=== PATIENT | male | born 1990 | race Caucasian/White ===

== ENCOUNTER 2018-03-18 15:30 | Emergency (ER) | payer MEDICAID ==
[~2018-03-18] VITALS: Ht 182.9 cm; Wt 102.3 kg
[2018-03-18 15:33] VITALS: BP 126/75
[2018-03-18] MEDS ORDERED: POLOS EACHEYE (15:52)
== END 2018-03-18 16:06 | disposition home or self-care (01) ==
LOC: ER 15:31
DX: H10.89 Other conjunctivitis (principal); Z79.2 Long term (current) use of antibiotics
CPT/HCPCS: 99283

== ENCOUNTER 2018-11-15 18:40 | Emergency (ER) | payer MEDICAID ==
[~2018-11-15] VITALS: Ht 182.9 cm; Wt 96.2 kg
[~2018-11-15 18:40] MED LIST: TOBR5DRO2 RIGHTEYE
[2018-11-15 18:48] VITALS: BP 132/87
[2018-11-15] MEDS ORDERED: ALBU8HFA PO (20:11)
[2018-11-15] MEDS ORDERED: AMOX-580 PO (20:11)
[2018-11-15] MEDS ORDERED: GENT5DRO4 EACHEYE (20:11)
== END 2018-11-15 20:27 | disposition home or self-care (01) ==
LOC: ER 18:41
DX: H10.89 Other conjunctivitis (principal); B99.9 Unspecified infectious disease; J40 Bronchitis, not specified as acute or chronic; F17.200 Nicotine dependence, unspecified, uncomplicated; Z79.899 Other long term (current) drug therapy
CPT/HCPCS: 99283

== ENCOUNTER 2021-09-17 19:31 | Emergency (ER) | payer SELFPAY ==
[~2021-09-17] VITALS: Ht 182.9 cm; Wt 90.9 kg
[~2021-09-17 19:31] MED LIST changes: +GENT5DRO4 EACHEYE
[2021-09-17 19:34] VITALS: BP 135/87
--- NOTE | 2021-09-17 20:51 | NUR ---
PATIENT LYING IN GURNEY EYES CLOSED RR EVEN UN LABORED NO OBSERVABLE S/S OF ACUTE RESPIRATORY DISTRESS AT THIS TIME WILL CONTINUE TO MONITOR
[2021-09-17] MEDS ORDERED: AZIT-83 PO (21:48)
[2021-09-17] MEDS ORDERED: dexamethasone sod phosphate 10mg/ml inj PO STA (21:52)
--- NOTE | 2021-09-17 22:09 | NUR ---
PATIENT IN [facility] EYES CLOSED COVERS ON RR EVEN UN LABOREDD NO OBSERVABLE S/S OF ACUTE STRESS AT THIS TIME WILL CONTINUE TO MONITOR
[2021-09-17 22:10] LABS: BASOPHILS % (AUTO) 0.3 % (0-1); EOSINOPHILS # (AUTO) 0.5 X10'3 (0-0.9); EOSINOPHILS % (AUTO) 4.5 % (0-6); HEMATOCRIT 46.3 % (42.0-52.0); HEMOGLOBIN 15.4 g/dl (14.0-17.9); LYMPHOCYTES # (AUTO) 1.2 X10'3 (1.1-4.8); LYMPHOCYTES % (AUTO) 10.5 % (21-51); MEAN CORPUSCULAR HGB CONC 33.2 g/dL (33.0-36.5); MEAN CORPUSCULAR VOLUME 87.3 FL (78-98); MEAN PLATELET VOLUME 7.8 FL (7.4-10.4); MONOCYTES % (AUTO) 8.8 % (2-12); NEUTROPHILS # (AUTO) 8.7 X10'3 (1.8-7.7); NEUTROPHILS % (AUTO) 75.9 % (42-75); PLATELET COUNT 225 X10'3 (140-440); RED CELL DISTRIBUTION WIDTH 13.1 % (11.5-14.5); WHITE BLOOD COUNT 11.5 X10'3 (4.5-11.0)
[2021-09-17 22:33] LABS: ALANINE AMINOTRANSFERASE 53 U/L (12-78); ALBUMIN 2.8 G/DL (3.4-5.0); ALBUMIN/GLOBULIN RATIO 0.9 (1.1-1.5); ALKALINE PHOSPHATASE 98 IU/L (46-116); ANION GAP 10 (8-16); ASPARTATE AMINO TRANSFERASE 31 U/L (10-37); BILIRUBIN,TOTAL 0.3 MG/DL (0.1-1.0); BLOOD UREA NITROGEN 9 MG/DL (7-18); BUN/CREATININE RATIO 8.7 (5.4-32.0); CALCIUM 8.5 MG/DL (8.5-10.1); CHLORIDE 107 MMOL/L (99-107); CREATININE 1.03 MG/DL (0.60-1.10); GLUCOSE 90 MG/DL (70-104); POTASSIUM 4.2 MMOL/L (3.5-5.1); SODIUM 142 MMOL/L (135-145); eGFR 85 ML/MIN
[2021-09-17] MEDS ORDERED: amox tr/potassium clavulanate 875/125mg TAB PO ONE (22:55)
[2021-09-17] MEDS ORDERED: AMOX-117 PO (23:04)
== END 2021-09-17 23:04 | disposition home or self-care (01) ==
LOC: ER 19:32
DX: J18.9 Pneumonia, unspecified organism (principal); Z20.822 Contact with and (suspected) exposure to COVID-19; R06.02 Shortness of breath; R05.9 Cough, unspecified; F15.90 Other stimulant use, unspecified, uncomplicated; F19.90 Other psychoactive substance use, unspecified, uncomplicated; Z79.2 Long term (current) use of antibiotics; Z79.899 Other long term (current) drug therapy
CPT/HCPCS: 36415; 71045; 80053; 84145; 85025; 87635; 99284; C9803; J1100

== ENCOUNTER 2021-10-08 16:11 | Emergency (ER) | payer SELFPAY ==
[~2021-10-08] VITALS: Ht 182.9 cm; Wt 98.0 kg
[2021-10-08 16:11] VITALS: BP 125/82
[~2021-10-08 16:11] MED LIST changes: +AZIT-83 PO
--- NOTE | 2021-10-08 16:37 | NUR ---
Pt discharged to the custody of [facility] officer Elías Martinez. Pt is fit for custody.
== END 2021-10-08 16:37 ==
LOC: ER 16:12
DX: Z04.1 Encounter for examination and observation following transport accident (principal); F17.200 Nicotine dependence, unspecified, uncomplicated; F15.90 Other stimulant use, unspecified, uncomplicated; F19.90 Other psychoactive substance use, unspecified, uncomplicated; Z79.2 Long term (current) use of antibiotics; Z79.899 Other long term (current) drug therapy; V89.2XXA Person injured in unspecified motor-vehicle accident, traffic, initial encounter; Y93.89 Activity, other specified; Y92.89 Other specified places as the place of occurrence of the external cause; Y99.8 Other external cause status
CPT/HCPCS: 99283

== ENCOUNTER 2022-03-11 13:01 | Emergency (ER) | payer MEDICAID ==
[~2022-03-11] VITALS: Ht 182.9 cm; Wt 95.5 kg
[~2022-03-11 13:01] MED LIST changes: -AZIT-83 PO
[2022-03-11 13:17] VITALS: BP 123/91
[2022-03-11] MEDS ORDERED: LIDOcaine 1% W/epiNEPHrine 1:100,000 20ml vial IJ ONE (14:35)
[2022-03-11] MEDS ORDERED: CEPH-585 PO (14:39)
== END 2022-03-11 14:49 | disposition home or self-care (01) ==
LOC: ER 13:01
DX: L03.317 Cellulitis of buttock (principal); L73.1 Pseudofolliculitis barbae; F15.90 Other stimulant use, unspecified, uncomplicated; Z79.899 Other long term (current) drug therapy
CPT/HCPCS: 99283

== ENCOUNTER 2022-03-26 05:52 | Emergency (ER) | payer MEDICAID ==
[~2022-03-26] VITALS: Ht 182.9 cm; Wt 95.0 kg
[~2022-03-26 05:52] MED LIST changes: +CEPH-585 PO
[2022-03-26 06:07] VITALS: BP 126/80
--- NOTE | 2022-03-26 06:20 | NUR ---
DIGNA ESPINOZA. REPORT FILED. CASE NUMBER IS [id number].
== END 2022-03-26 07:15 | disposition left against medical advice (07) ==
LOC: ER 05:53
DX: M79.601 Pain in right arm (principal); Z53.21 Procedure and treatment not carried out due to patient leaving prior to being seen by health care provider

== ENCOUNTER 2025-01-19 21:25 | Emergency (ER) | payer MEDICAID ==
[~2025-01-19] VITALS: Ht 182.9 cm; Wt 104.5 kg
[~2025-01-19 21:25] MED LIST changes: -CEPH-585 PO; +GEN0.3OS EACHEYE; -GENT5DRO4 EACHEYE
[2025-01-19 21:27] VITALS: BP 140/82; PULSE 98; RESP 18; O2SAT 99
--- NOTE | 2025-01-19 22:00 | Physician Documentation ---
HPI ~ General Chief Complaint: Tooth Problem Stated Complaint: TOOTH PAIN Time Seen by MD: 21:54 Primary Medical Doctor: None History of Present Illness HPI Comment Patient is seen today with complaints of pain of molar in the left side. Patient states this started few days ago he and he does have history of dental abscesses and dental caries. Patient denies any fever or chills. He states he needs some amoxicillin and ibuprofen. He has no other concern or complaint at this time. Medication Reconciliation Allergies: Coded Allergies: No Known Allergies (Unverified , 01/19/25) Scheduled Gentamicin Sulfate (Gentak), 2 DROP EACHEYE TID Tobramycin Sulfate/Dexameth (Tobradex Eye Drops), 1 DROP RIGHTEYE Q6H Past Medical History Past Medical History: No Pertinent History Past Surgical History: no surgical history Alcohol Use: Rarely Drug Use: methamphetamine, other Lives with: Family Lives In: Home Review of Systems Constitutional: Denies: chills, fever, weakness Eyes: Denies: pain, blurred vision ENT: Denies: ear pain, nose pain, throat pain, mouth pain Respiratory: Denies: cough, shortness of breath Cardiovascular: Denies: chest pain, palpitations Gastrointestinal: Denies: abdominal pain, nausea, vomiting Genitourinary: Denies: burning, dysuria Male Genitalia: Denies: penile discharge, testicular pain Neurological: Denies: headache, dizziness Musculoskeletal: Denies: pain, swelling Integumentary: Denies: rash, lesions Allergic/Immunologic: Denies: hives, itching Hematologic/Lymphatic: Denies: no symptoms reported Psychiatric: Denies: depression, anxiety Physical Exam Vital Signs: Temperature: 98.1, Source: Oral, Heart Rate: 98, Respiratory Rate: 18, BP: 140/82, Pulse Oximetry: 99, Weight: 104.550 Physical Exam General: Awake and Alert, no acute distress. HEENT: Patient on exam has very poor dentition with multiple dental caries and fractures and periapical abscess of left upper molar. Conjunctiva pink, Sclera clear, Mucus Membranes moist. Neck: Supple without masses and tenderness. Resp: Unlabored. Lungs clear to auscultation bilaterally. Heart: Regular Rate and rhythm, normal S1 and S2 without murmur, rub or gallop. Abdomen: Soft and non tender no organomegaly Extremities: No cyanosis,clubbing or edema. Skin: Warm and Dry. Progress Results/Orders Results/Orders Vital Signs 01/19/25 21:27 Temp 98.1 Pulse 98 Resp 18 B/P (MAP) 140/82 Pulse Ox 99 Medical Decision Making Findings Patient is seen today with complaints of pain of molar in the left side. Patient states this started few days ago he and he does have history of dental abscesses and dental caries. Patient denies any fever or chills. He states he needs some amoxicillin and ibuprofen. He has no other concern or complaint at this time. Patient was given dose of the amoxicillin a 1000 mg by mouth in the ED tonight along with ibuprofen 800 mg and Tylenol 975 mg by mouth. Patient will have the same medications sent to his pharmacy to be taken as prescribed. Patient will follow up with dentist as soon as possible. Return to ED with any worsening, concerning or changing symptoms. Departure Disposition: 01 HOME / SELF CARE / HOMELESS Impression: Primary Impression: Dental abscess Condition: Improved Discharge Instructions: Dental Abscess Additional Instructions: Patient was given dose of the amoxicillin a 1000 mg by mouth in the ED tonight along with ibuprofen 800 mg and Tylenol 975 mg by mouth. Patient will have the same medications sent to his pharmacy to be taken as prescribed. Patient will follow up with dentist as soon as possible. Return to ED with any worsening, concerning or changing symptoms. Referrals: NO PRIMARY CARE PROVIDER (PCP) Prescriptions Acetaminophen (Tylenol Extra Strength) 500 Mg Tablet 2 TAB PO Q6H PRN PRN for pain or fever for 7 Days, #56 TAB Prov: MARY COLIN 01/19/25 Ibuprofen (Ibuprofen) 800 Mg Tablet 1 TAB PO Q8H for pain for 10 Days, #30 TAB 0 Refills Prov: MARY COLIN 01/19/25 Amoxicillin Trihydrate (Amoxicillin) 875 Mg Tablet 1 TAB PO Q12H for 10 Days, #20 TAB Prov: MARY COLIN 01/19/25 Signature Scribe Signature: No scribe Attestation: No scribe MARY COLIN Jan 19, 2025 22:00
[2025-01-19] MEDS ORDERED: AMOX875T10 PO (22:10)
[2025-01-19] MEDS ORDERED: ACET-1025 PO (22:10)
[2025-01-19] MEDS ORDERED: IBUP-1986 PO (22:10)
[2025-01-19 22:50] VITALS: TEMP 98.1
[2025-01-19] MEDS: ibuprofen tablet 400 MG TABLET PO ONE (22:55)
[2025-01-19] MEDS: amoxicillin 250mg capsule PO STA (22:55)
== END 2025-01-19 22:56 | disposition home or self-care (01) ==
LOC: ER 21:25
DX: K04.7 Periapical abscess without sinus (principal); Z79.899 Other long term (current) drug therapy
CPT/HCPCS: 99283

== ENCOUNTER 2025-02-11 20:12 | Emergency (ER) | payer MEDICAID ==
[~2025-02-11] VITALS: Ht 182.9 cm; Wt 98.9 kg
[~2025-02-11 20:12] MED LIST changes: +IBUP-1986 PO
[2025-02-11] MEDS ORDERED: NAPR-56 PO (20:22)
[2025-02-11] MEDS ORDERED: SULF1TAB49 PO (20:22)
--- NOTE | 2025-02-11 20:24 | Physician Documentation ---
History of Present Illness ~ Chief Complaint: Abscess Stated Complaint: ARMPIT BUMPS Time Seen by MD: 20:13 Primary Medical Doctor: None HPI Presents to the ER for draining painful abscesses beneath left arm. No fevers, chills, nausea, vomiting. Reportedly UTD on tetanus. Tetanus Within 5 Years: Yes Medication Reconciliation Allergies: Coded Allergies: No Known Allergies (Unverified , 02/11/25) Scheduled Gentamicin Sulfate (Gentak), 2 DROP EACHEYE TID Ibuprofen (Ibuprofen), 1 TAB PO Q8H Naproxen (Naproxen), 1 TAB PO Q12H Sulfamethoxazole/Trimethoprim (Bactrim Ds Tablet), 1 TAB PO Q12H Tobramycin Sulfate/Dexameth (Tobradex Eye Drops), 1 DROP RIGHTEYE Q6H Past Medical History Past Medical History: No Pertinent History Past Surgical History: no surgical history Alcohol Use: Rarely Drug Use: methamphetamine, other Lives with: Family Lives In: Home Physical Exam Vital Signs: Temperature: 97.7, Source: Oral, Heart Rate: 108, Respiratory Rate: 17, BP: 138/97, Pulse Oximetry: 97, Weight: 98.860 Oxygen Flow Rate: 0 Physical Exam General: Alert, no apparent distress. Neck: Full range of motion. Respiratory: Lungs clear, no respiratory distress. Chest: No accessory muscle use. Cardiovascular: Regular rate and rhythm, no murmurs. Gastrointestinal: Soft, nontender, nondistended. Bowels sounds present. Extremities: Normal range of motion, no deformity. Neurologic: Oriented x4. Psychiatric: Normal mood and affect. Skin: Normal color, warm and dry. No edema, no ecchymosis.Several small draining abscesses beneath left undearm. Progress Results/Orders Results/Orders Orders - MELINDA GARZA NP Sulfamethox/Trimetho. Ds Tab (Septra Ds (02/11/25 20:25) Vital Signs 02/11/25 20:14 Temp 97.7 Pulse 108 Resp 17 B/P (MAP) 138/97 Pulse Ox 97 O2 Flow Rate 0 Medical Decision Making Differential Dx:Considerations: Include: Abscess, Bacteremia, Cellulitis, Erysi pelas, Felon, Gas gangrene, Hidrademitis suppurativa, Impetigo, Lymphangitis, Osteromyelitis, Paronychia, Septicemia Additional Comment Well appearing 34 yr old male presents due to multiple draining abscesses beneath left underarm. Reports being UTD on tetanus. Tx with first dose of antibiotic in ER and then full course to his outpatient pharmacy. Is to return if worse. Departure Time of Disposition: 20:22 Disposition: HOME / SELF CARE / HOMELESS Impression: Primary Impression: Abscess Additional Impression: Hidradenitis axillaris Condition: Stable Discharge Instructions: Hidradenitis Suppurativa, Skin Abscess, [id number] Additional Instructions: Warm moist compresses to left underarm x 15 minutes at least four times daily. Keep wounds clean and dry. Change the gauze after each time you apply the warm moist soaks. Take the antibiotics as prescribed. Followup with primary care in the next week or return if worse. Referrals: NO PRIMARY CARE PROVIDER (PCP) Prescriptions Naproxen (Naproxen) 500 Mg Tablet 1 TAB PO Q12H, #20 TAB Prov: MELINDA GARZA NP 02/11/25 Sulfamethoxazole/Trimethoprim (Bactrim Ds Tablet) 800 Mg-160 Mg Tablet 1 TAB PO Q12H for 7 Days, #14 TAB Prov: MELINDA GARZA NP 02/11/25 Education Educated: Patient Educated regarding: diagnosis, treatment, prognosis, need for follow up Signature Scribe Signature: x Attestation: The note accurately reflects work and decisions made by me.Melinda Pennington NP 02/11/25 20:27 MELINDA GARZA NP Feb 11, 2025 20:24
[2025-02-11] MEDS: sulfamethoxazole/trimethoprim DS (800/160mg) tablet PO ONE (20:31)
[2025-02-11 20:33] VITALS: BP 136/98; PULSE 101; RESP 18; TEMP 98.6; O2SAT 99
== END 2025-02-11 20:34 | disposition home or self-care (01) ==
LOC: ER 20:12
DX: L02.414 Cutaneous abscess of left upper limb (principal); L73.2 Hidradenitis suppurativa
CPT/HCPCS: 99283

== ENCOUNTER 2025-05-23 21:09 | Emergency (ER) | payer MEDICAID ==
[~2025-05-23] VITALS: Ht 182.9 cm; Wt 100.0 kg
[2025-05-23 21:18] VITALS: BP 128/90; PULSE 108; RESP 16; O2SAT 99
--- NOTE | 2025-05-23 21:46 | Physician Documentation ---
HPI ~ General Chief Complaint: Facial Swelling Stated Complaint: TOOTH PAIN Time Seen by MD: 21:37 Primary Medical Doctor: None History of Present Illness HPI Comment Presents for interval evaluation: Facial cellulitis secondary to dental infection currently on antibiotics twice a day. He has been taking antibiotics for 24-48 hours. Examination consistent with present diagnosis. Medication Reconciliation Allergies: Coded Allergies: No Known Allergies (Unverified , 05/23/25) Scheduled Gentamicin Sulfate (Gentak), 2 DROP EACHEYE TID Ibuprofen (Ibuprofen), 1 TAB PO Q8H Tobramycin Sulfate/Dexameth (Tobradex Eye Drops), 1 DROP RIGHTEYE Q6H Past Medical History Past Medical History: No Pertinent History Past Surgical History: no surgical history Alcohol Use: Rarely Drug Use: methamphetamine, other Lives with: Family Lives In: Home Review of Systems All Other Systems at this time: Reviewed and Negative ENT: Reports: other (facial swelling) ENT dental pain Physical Exam Vital Signs: Temperature: 98.1, Source: Oral, Heart Rate: 108, Respiratory Rate: 16, BP: 128/90, Pulse Oximetry: 99, Weight: 100.000 General Appearance: alert, WD/WN, mild distress Ear: auricle normal Teeth/Gums: carious, gingiva redness, gingiva swelling; No: missing teeth, necrotizing gingiva, gingiva pointing Face: swelling (left with mild inferior wendy orbital swelling without erythema) Neck: non-tender Respiratory: no respiratory distress Chest: no accessory muscle use Cardiovascular: regular rate, rhythm Neurologic: oriented x4 Progress Results/Orders Results/Orders Vital Signs 05/23/25 05/23/25 21:18 21:52 Temp 98.1 98.1 Pulse 108 Resp 16 B/P (MAP) 128/90 Pulse Ox 99 Medical Decision Making Additional information obtaine: old records Findings 34-year-old male who is examination history is consistent with facial cellulitis secondary to odontogenic infection for which he has been treated adequately for. Patient encouraged to continue with the medications as directed. No clinical suspicion for periapical abscess, Wilmer's angina and/or angioedema. He is scheduled dental follow up in the near future. Safely discharged in the emergency department. Differential Dx:Considerations: Include: Facial Cellulitis, Periapical abscess, Peridontal abscess, Pulpitis, Tooth avulsion Departure Disposition: HOME / SELF CARE / HOMELESS Impression: Primary Impression: Facial cellulitis Additional Impression: Dental abscess Condition: Stable Discharge Instructions: Cellulitis, Adult, Dental Abscess, [id number] Additional Instructions: Please continue with the current antibiotics as directed. Please keep your scheduled follow up appointment with the dentist. Return to the emergency department symptoms worsen. Your current swelling is consistent with your current diagnosis. Referrals: NO PRIMARY CARE PROVIDER (PCP) Education Educated: Patient Educated regarding: diagnosis, treatment, prognosis, need for follow up Signature Scribe Signature: . Attestation: . NATALIA CROCKETT [facility] May 23, 2025 21:46
[2025-05-23 21:52] VITALS: TEMP 98.1
== END 2025-05-23 21:53 | disposition home or self-care (01) ==
LOC: ER 21:10
DX: L03.211 Cellulitis of face (principal); K04.7 Periapical abscess without sinus; F15.90 Other stimulant use, unspecified, uncomplicated; F19.90 Other psychoactive substance use, unspecified, uncomplicated; Z79.899 Other long term (current) drug therapy
CPT/HCPCS: 99282

== ENCOUNTER 2025-07-02 12:23 | Emergency (ER) | payer MEDICAID ==
[~2025-07-02] VITALS: Ht 182.9 cm; Wt 103.0 kg
[2025-07-02 12:27] VITALS: TEMP 98.6
[2025-07-02] MEDS: amox tr/potassium clavulanate 875/125mg TAB PO STA (13:24)
--- NOTE | 2025-07-02 13:28 | Physician Documentation ---
History of Present Illness ~ Chief Complaint: Abscess Stated Complaint: ABSCESS Time Seen by MD: 12:43 OK to notify your PCP?: Yes Primary Medical Doctor: None HPI Patient is seen today with complaints of redness and swelling and increased pain and concerned for infection after he was bit by a puppy dog couple of days ago involving his left wrist dorsum of the radial aspect. Patient denies any fevers or chills in his no other concern or complaint at this time. Tetanus Within 5 Years: Yes Medication Reconciliation Allergies: Coded Allergies: No Known Allergies (Unverified , 07/02/25) Scheduled Gentamicin Sulfate (Gentak), 2 DROP EACHEYE TID Ibuprofen (Ibuprofen), 1 TAB PO Q8H Tobramycin Sulfate/Dexameth (Tobradex Eye Drops), 1 DROP RIGHTEYE Q6H Past Medical History Past Medical History: No Pertinent History Past Surgical History: no surgical history Alcohol Use: Rarely Drug Use: methamphetamine, other Lives with: Family Lives In: Home Review of Systems Constitutional: Denies: chills, fever, weakness Eyes: Denies: pain, blurred vision ENT: Denies: ear pain, nose pain, throat pain, mouth pain Respiratory: Denies: cough, shortness of breath Cardiovascular: Denies: chest pain, palpitations Gastrointestinal: Denies: abdominal pain, nausea, vomiting Genitourinary: Denies: burning, dysuria Male Genitalia: Denies: penile discharge, testicular pain Neurological: Denies: headache, dizziness Musculoskeletal: Denies: pain, swelling Integumentary: Denies: rash, lesions Allergic/Immunologic: Denies: hives, itching Hematologic/Lymphatic: Denies: no symptoms reported Psychiatric: Denies: depression, anxiety Physical Exam Vital Signs: Temperature: 98.6, Source: Oral, Heart Rate: 98, Respiratory Rate: 18, Pulse Oximetry: 99, Weight: 103.000 Oxygen Flow Rate: 0 Physical Exam General: Awake and Alert, no acute distress. HEENT: Conjunctiva pink, Sclera clear, Mucus Membranes moist. Neck: Supple without masses and tenderness. Resp: Unlabored. Lungs clear to auscultation bilaterally. Heart: Regular Rate and rhythm, normal S1 and S2 without murmur, rub or gallop. Extremities: Patient on exam does have 2 cm diameter area of erythema in the dorsum of his left wrist radial aspect with surrounding induration and erythema without any drainage currently and with no palpable fluctuant mass at this time. Patient is neurovascularly intact distally. Motor function intact distally. Skin: Warm and Dry. Progress Results/Orders Results/Orders Completed Orders - MARY COLIN Amox Tr/Potassium Clavulanate (Augmentin (07/02/25 13:04) Medications Received in ER Medications (Trade) Dose Ordered Sig/Enrrique Route PRN Reason Start Time Stop Time Status Last Admin Dose Admin (Augmentin 875-125mg tablet) 1 tab ONCE STAT PO 07/02/25 13:04 07/02/25 13:09 DC 07/02/25 13:24 1 TAB Vital Signs 07/02/25 12:27 Temp 98.6 Pulse 98 Resp 18 Pulse Ox 99 O2 Flow Rate 0 Medical Decision Making Additional information obtaine: N/A Findings Patient is seen today with complaints of redness and swelling and increased pain and concerned for infection after he was bit by a puppy dog couple of days ago involving his left wrist dorsum of the radial aspect. Patient denies any fevers or chills in his no other concern or complaint at this time. Patient was given dose of Augmentin 875/125 mg one tab by mouth in the ED today. Prescription sent to patient's pharmacy to be taken twice a day for 10 days. Patient will perform warm compress two to 3 times a day for the next three five days and will change dressing daily. Patient was given gauze bandages. With any worsening, concerning or changing symptoms. Differential Dx:Considerations: Include: Abscess, Cellulitis, Gas gangrene, Impetigo Departure Disposition: 01 HOME / SELF CARE / HOMELESS Impression: Primary Impression: Abscess Condition: Stable Discharge Instructions: Skin Abscess, [id number] Additional Instructions: Patient was given dose of Augmentin 875/125 mg one tab by mouth in the ED today. Prescription sent to patient's pharmacy to be taken twice a day for 10 days. Patient will perform warm compress two to 3 times a day for the next three five days and will change dressing daily. Patient was given gauze bandages. With any worsening, concerning or changing symptoms. Referrals: NO PRIMARY CARE PROVIDER (PCP) Prescriptions Amox Tr/Potassium Clavulanate (Augmentin 875-125 Tablet) 1 Each Tablet 1 TAB PO Q12H for 10 Days, #20 TAB Prov: MARY COLIN 07/02/25 Signature Scribe Signature: No scribe Attestation: No scribe MARY COLIN PAC Jul 02, 2025 13:27
[2025-07-02] MEDS ORDERED: AMOX-117 PO (13:34)
[2025-07-02 13:41] VITALS: BP 138/94; PULSE 84; RESP 17; O2SAT 95
== END 2025-07-02 13:43 | disposition home or self-care (01) ==
LOC: ER 12:23
DX: L02.414 Cutaneous abscess of left upper limb (principal); F15.90 Other stimulant use, unspecified, uncomplicated; F19.90 Other psychoactive substance use, unspecified, uncomplicated; Z79.899 Other long term (current) drug therapy
CPT/HCPCS: 99283